=== PATIENT | female | born 1945 | race Caucasian/White ===

== ENCOUNTER → 2020-07-07 | Day surgery (SDC) | payer MEDICARE, OTHER ==
[~2020-07-07] MED LIST: Ketamine 200 MG/20 ML MDV IV ONE; Propofol 200 MG/20 ML SDV IV ONE; fentaNYL 100 MCG/2 ML SDV IV ONE
[2020-07-07] MEDS: Lactated Ringers 1,000 ML IV SCH (07:30)
--- NOTE | 2020-07-07 14:22 | OR ---
DATE OF OPERATION: 07/07/2020 PREOPERATIVE DIAGNOSIS: SCREENING COLONOSCOPY. POSTOPERATIVE DIAGNOSIS: SCREENING COLONOSCOPY. SURGEON: Jose Oliveira MD PROCEDURE: FULL-LENGTH COLONOSCOPY. ANESTHESIA: MAC. COMPLICATIONS: None. SPECIMEN: None. FINDINGS: 1. Full-length colonoscopy. 2. Moderate sigmoid and rectosigmoid diverticulosis. RECOMMENDATIONS: Followup colonoscopy on an as-needed basis only. INDICATIONS: The patient was in for a routine preop evaluation as she is due for a screening colonoscopy. It has been 10 years since her last scope. DESCRIPTION OF PROCEDURE: The patient was prepped and draped and placed in the left lateral decubitus position. A lubricated Olympus colonoscope was inserted and with relative ease advanced to the cecum. The patient was quite tortuous in the distal sigmoid area, but once past that, the scope passed safely and easily into the cecal pouch. We were able to directly visualize the ileocecal valve and appendiceal orifice. The bowel prep was adequate. Upon withdrawal of the scope, the right, transverse, and descending colons were unremarkable. In the midportion of the sigmoid colon, the patient had pretty prominent diverticular disease extending throughout to the rectosigmoid junction. No polyps, masses, ulceration, or bleeding sites were found. The rectal vault was benign. Retroflexion showed no perianal lesions. Air was suctioned and the scope removed without complication. SON/LUISA /[id number]
== END ==
LOC: CC.SDS 07:01
PROVIDERS: ATTEND Family Medicine
DX: Z12.11 Encounter for screening for malignant neoplasm of colon (principal); K57.30 Diverticulosis of large intestine without perforation or abscess without bleeding; I10 Essential (primary) hypertension; E03.9 Hypothyroidism, unspecified; M19.90 Unspecified osteoarthritis, unspecified site; Z88.1 Allergy status to other antibiotic agents; Z88.2 Allergy status to sulfonamides; Z79.890 Hormone replacement therapy; Z79.899 Other long term (current) drug therapy
CPT/HCPCS: J2704; J3010; J7120

== ENCOUNTER 2025-09-22 14:12 | Emergency (ER) | payer MEDICARE, OTHER ==
[2025-09-22 14:40] LABS: BASOPHILS ABSOLUTE AUTO 0.06 10^3/uL (0.00-0.50); BASOPHILS PERCENT AUTO 0.6 % (0-1); EOSINOPHILS ABSOLUTE AUTO 0.12 10^3/uL (0.00-1.50); EOSINOPHILS PERCENT AUTO 1.2 % (0-6); IMMATURE GRAN ABSOLUTE AUTO 0.02 10^3/uL (0.00-0.49); IMMATURE GRAN PERCENT AUTO 0.2 % (0.0-4.9); LYMPHOCYTES ABSOLUTE AUTO 5.03 10^3/uL (0.60-5.00); LYMPHOCYTES PERCENT AUTO 51.1 % (24-44); MONOCYTES ABSOLUTE AUTO 0.82 10^3/uL (0.00-1.50); MONOCYTES PERCENT AUTO 8.3 % (0-10); NEUTROPHILS ABSOLUTE AUTO 3.79 x10^3/uL (1.80-8.00); NEUTROPHILS PERCENT AUTO 38.6 % (41-71); PLATELET COUNT,PLT 116 10^3/uL (150-400); RED BLOOD CELL COUNT 5.30 x10^6/uL (4.00-5.50); WHITE BLOOD CELL COUNT,WBC 9.8 10^3/uL (4.0-11.0)
[2025-09-22 14:57] LABS: ALANINE AMINOTRANSFERASE,ALT 40 U/L (12-78); ASPARTATE AMNIOTRANSFERASE,AST 25 U/L (15-37); BILIRUBIN TOTAL 0.4 mg/dL (0.0-1.0); BLOOD UREA NITROGEN,BUN 20 mg/dL (7-18); CARBON DIOXIDE,CO2 33 mmol/L (21-32); CHLORIDE,CL 103 mEq/L (98-106); CREATININE 1.3 mg/dL (0.6-1.0); ESTIMATED GFR 42 mL/min (>=60); GLUCOSE RANDOM 91 mg/dL (75-99); POTASSIUM,K 3.3 mEq/L (3.5-5.0); PROTEIN TOTAL,TP 7.1 g/dL (6.4-8.2); SODIUM,NA 143 mEq/L (136-145)
[2025-09-22] MEDS: Iopamidol 755 Mg/ML 100 ML Bottle IVPUSH ONE (15:04)
[2025-09-22 15:23] LABS: APPEARANCE,URINE CLEAR (CLEAR); GLUCOSE,URINE NEGATIVE (NEGATIVE); OCCULT BLOOD,URINE NEGATIVE (NEGATIVE)
[2025-09-22 15:28] LABS: INR 0.99 (0.92-1.18); PTT,PARTIAL THROMBOPLSTIN TIME 22.6 SEC (20.0-30.0)
[2025-09-22 15:33] LABS: SQUAMOUS EPITHELIAL CELLS,UR MODERATE /HPF (NOT SEEN)
== END 2025-09-22 19:00 ==
LOC: CC.ED 14:12
DX: I63.9 Cerebral infarction, unspecified (principal); I10 Essential (primary) hypertension; E78.00 Pure hypercholesterolemia, unspecified; E03.9 Hypothyroidism, unspecified; Z88.2 Allergy status to sulfonamides; Z79.899 Other long term (current) drug therapy; Z79.890 Hormone replacement therapy
CPT/HCPCS: 36415; 70450; 70496; 70498; 80053; 81001; 82947; 83735; 84484; 85025; 85610; 85730; 93005; 93010; 99284; 99285; A9270-GY; Q9967